=== PATIENT | male | born 1980 | race Caucasian/White ===

== ENCOUNTER → 2017-09-21 | Outpatient (CLI) | payer BC | LOC: LAB 11:16 | PROVIDERS: ATTEND Family Medicine | DX: R19.7 Diarrhea, unspecified (principal) | CPT/HCPCS: 87328; 87329 ==

== ENCOUNTER 2019-12-13 19:29 | Emergency (ER) | payer BC ==
[~2019-12-13] VITALS: Ht 195.6 cm; Wt 133.8 kg
[2019-12-13 19:36] VITALS: BP 148/86
--- NOTE | 2019-12-13 19:50 | ED Upper Extremity ---
General Chief Complaint: Upper Extremity Stated Complaint: HAND INJURY Nursing Triage Note: PT AMBULATE TO TRIAGE WITH C/O RIGHT WRIST PAIN AFTER HITTING THE SIDE OF A HOUSE. PT STATES THAT HIS MOM MADE HIM COME TO ED. Nursing Sepsis Screen: No Definite Risk Source: patient Exam Limitations: no limitations History of Present Illness Date Seen by Provider: Dec 13, 2019 Time Seen by Provider: 19:49 Initial Comments Punched a wall prior to arrival now has right hand pain and swelling. Onset: just prior to arrival Severity: moderate Pain/Injury Location: right wrist, right hand Method of Injury: direct blow Modifying Factors: Worse With Movement Allergies and Home Medications Allergies Coded Allergies: No Known Allergies (Verified Allergy, Unknown, 12/13/19) Patient Home Medication List Home Medication List Reviewed: Yes Review of Systems Constitutional: see HPI EENTM: see HPI Respiratory: no symptoms reported Cardiovascular: no symptoms reported Genitourinary: no symptoms reported Musculoskeletal: see HPI Skin: no symptoms reported Psychiatric/Neurological: No Symptoms Reported Past Isuwjbp-Unzrrn-Iveerr Hx Patient Social History Alcohol Use: Denies Use Recreational Drug Use: No Smoking Status: Never a Smoker 2nd Hand Smoke Exposure: No Recent Foreign Travel: No Contact w/Someone Who Travel: No Recent Infectious Disease Expo: No Recent Hopitalizations: No Physical Abuse: No Sexual Abuse: No Mistreated: No Fear: No Seasonal Allergies Seasonal Allergies: Yes Past Medical History Surgeries: Yes Testicular Respiratory: No Cardiac: No Neurological: No Genitourinary: No Gastrointestinal: No Musculoskeletal: No Endocrine: No HEENT: No Cancer: No Psychosocial: No Integumentary: No Blood Disorders: No Physical Exam Vital Signs Vital Signs - First Documented 12/13/19 19:36 Temp 36.8 Pulse 118 Resp 19 B/P (MAP) 148/86 (106) O2 Delivery Room Air Capillary Refill : Less Than 3 Seconds Height, Weight, BMI Height: '" Weight: lbs. oz. kg; 34.00 BMI Method: General Appearance: WD/WN, no apparent distress Neck: non-tender, full range of motion Respiratory: no respiratory distress, no accessory muscle use Elbow/Forearm: normal inspection, non-tender Wrist: Yes normal inspection, Yes non-tender Hand: Right, limited ROM, swelling (over the fourth and fifth metacarpals. Brisk capillary refill of the fingertips.) Neurologic/Tendon: normal sensation Neurologic/Psychiatric: alert, normal mood/affect, oriented x 3 Skin: normal color, warm/dry Progress/Results/Core Measures Results/Orders My Orders Orders - REILLY LUNDBERG APRN Hand, Right, 3 Views (12/13/19 19:44) Rx-Hydrocodone/Apap 5-325 Mg (Rx-Vicodin (12/13/19 20:15) Vital Signs/I&O 12/13/19 19:36 Temp 36.8 Pulse 118 Resp 19 B/P (MAP) 148/86 (106) O2 Delivery Room Air Blood Pressure Mean: 106 Departure Communication (Admissions) placed in ulnar gutter splint using 4inch orthoglass . Patient states he does not want any hydrocodone for pain medication prescribed. Impression Primary Impression: Closed fracture of 5th metacarpal Disposition: 01 HOME, SELF-CARE Condition: Stable Departure-Patient Inst. Decision time for Depature: 20:12 Referrals: ABHIJIT ELLIOTT MD (PCP/Family) Primary Care Physician CHAPITO KENYON MD Patient Instructions: Hand Fracture Add. Discharge Instructions: Return to ER for any concerns. Leave the splint on and keep it clean and dry at all times until you follow up with Dr. Kenyon. Call tomorrow to make an appointment to be seen. All discharge instructions reviewed with patient and/or family. Voiced understanding. Copy Copies To 1: CHAPITO KENYON MD, PETER J APRN Dec 13, 2019 19:50
--- NOTE | 2019-12-13 20:09 | Diagnostic Imaging Report ---
INDICATION: Fall, pain. FINDINGS: There is an extra-articular distal 5th metacarpal anteriorly angulated boxer's type fracture pattern. Anterior angulation in the lateral view is 10 degrees or less. No articular involvement. The proximal phalanx and the remaining 5th finger intact. The remaining metacarpal bones intact. IMPRESSION: Mild angulation of the extra-articular 5th metacarpal boxer's fracture pattern. Dictated by: Dictated on workstation # [id number]
[2019-12-13] MEDS ORDERED: RX-HYDROCODONE/APAP 5/325 MG #4 TAB PK PO PRN (20:15)
--- NOTE | 2019-12-13 20:15 | NUR ---
PT REFUSED TAKE HOME PACK OF HYDROCODONE.
== END 2019-12-13 20:16 | disposition home or self-care (01) ==
LOC: EDUNIT# 19:29 → ER 19:30
DX: S62.306A Unspecified fracture of fifth metacarpal bone, right hand, initial encounter for closed fracture (principal); W22.01XA Walked into wall, initial encounter
CPT/HCPCS: 73130